=== PATIENT | male | born 1990 | race African-American/Black ===

== ENCOUNTER 2018-10-25 02:38 | Emergency (ER) | payer OTHER ==
[2018-10-25] MEDS ORDERED: PENICILLIN G BENZATHINE 1.2 MILLION UNIT/2 ML DISP.SYRIN IM ONE (04:05)
[2018-10-25] MEDS ORDERED: DEXAMETHASONE SOD PHOS INJ 10 MG/1 ML VIAL IM ONE (04:05)
[2018-10-25] MEDS ORDERED: IBUPROFEN 600 MG TABLET PO ONE (04:07)
--- NOTE | 2018-10-25 04:10 | ER Document Report ---
HPI - HPI Time Seen by Provider: 10/25/18 03:51 Pain Level: 4 Context: Patient is a 28-year-old male that comes to the emergency department for chief complaint of sore throat that has been worsening over the past 2-1/2 days. He states it is much worse tonight and he has a lot of pain swallowing. He denies fever/chills. He denies congestion, postnasal drip, cough, or any other complaints except the sore throat. He denies any daily medications or diagnosed medical history. - EENT EENT: REPORTS: Sore Throat, Ear Pain Past Medical History - General Information source: Patient - Social History Smoking Status: Never Smoker Chew tobacco use (# tins/day): No Frequency of alcohol use: Occasional Drug Abuse: None Lives with: Family Family History: Reviewed & Not Pertinent Patient has suicidal ideation: No Patient has homicidal ideation: No - Medical History Medical History: Negative Renal/ Medical History: Denies: Hx Peritoneal Dialysis Surgical Hx: Negative - Immunizations Immunizations up to date: Yes Hx Diphtheria, Pertussis, Tetanus Vaccination: Yes Vertical Provider Document - CONSTITUTIONAL General Appearance: WD/WN, No Apparent Distress - INFECTION CONTROL TRAVEL OUTSIDE OF THE [place] IN LAST 30 DAYS: No - HEENT HEENT: Atraumatic, Normocephalic. negative: Normal ENT Exam - Exudative pharyngitis noted bilaterally, normal uvula, normal tongue, patent airway, no evidence of peritonsillar abscess. Unremarkable otherwise. - NECK Neck: Other - Moderate bilateral anterior cervical adenopathy, no submandibular swelling - RESPIRATORY Respiratory: Breath Sounds Normal, No Respiratory Distress - CARDIOVASCULAR Cardiovascular: Regular Rate, Regular Rhythm - GI/ABDOMEN Gastrointestinal: Abdomen Soft, Abdomen Non-Tender - BACK Back: Normal Inspection - MUSCULOSKELETAL/EXTREMETIES Musculoskeletal/Extremeties: MAEW, FROM, Non-Tender - NEURO Level of Consciousness: Awake, Alert, Appropriate - DERM Integumentary: Warm, Dry, No Rash Course - Re-evaluation Re-evalutation: Patient with notable exudative pharyngitis but clear airway and no evidence of abscess. Anterior cervical adenopathy present but no evidence of Mike's angina. Patient has no swelling of the spleen on exam, no abdominal tenderness. Patient declines throat swab testing. Presentation is consistent with strep, discussed options, patient requests treatment with dexamethasone and penicillin G, discussed expectations, follow-up, return precautions. Patient states understanding and agreement. Stable at time of discharge. - Vital Signs Vital signs: Temp Pulse Resp BP Pulse Ox 97.9 F 64 16 122/69 100 10/25/18 02:45 10/25/18 02:45 10/25/18 02:45 10/25/18 02:45 10/25/18 02:45 Discharge - Discharge Clinical Impression: Exudative pharyngitis, Anterior cervical adenopathy Condition: Stable Disposition: HOME, SELF-CARE Additional Instructions: Your symptoms and evaluation meet criteria for strep throat. You have been treated for this. Your symptoms should resolve. There is a possibility that this is viral, if it is it may last longer but will resolve on its own. See mononucleosis directions below. Take Tylenol or ibuprofen for pain, drink plenty fluids, and rest. Follow-up with primary care. Return for any concerning symptoms (worsening pain, difficulty swallowing, change in your voice ,etc). Mononucleosis This is a viral infection which can last several weeks. Typically, a week or two of tiredness precedes a sore throat, swollen glands, fever, and aches. Sometimes there's a rash. In severe cases, swollen spleen and liver develop. There is no cure for mononucleosis. You should rest, drink plenty of fluids, and avoid contact or high risk of injury sports until you are better (you could rupture your swollen spleen). A follow-up examination is usually done in about a week. Further laboratory testing may be necessary then. See the doctor if there is significant worsening of the symptoms or onset of new symptoms such as severe headache, stiff neck, generalized or severe abdominal pain, or faintness. Forms: Return to Work Referrals: DEBBIE PITTS MD [Primary Care Provider] - Follow up as needed
[2018-10-25 04:27] VITALS: BP 124/76
== END 2018-10-25 04:27 | disposition home or self-care (01) ==
LOC: ER 02:38
DX: J02.9 Acute pharyngitis, unspecified (principal); R59.0 Localized enlarged lymph nodes
CPT/HCPCS: 99282; 96372; J0561; J1100